=== PATIENT | female | born 1995 | race Caucasian/White ===

== ENCOUNTER → 2020-09-30 | Day surgery (SDC) | payer OTHER ==
[~2020-09-30] MED LIST: HYDROCODON-ACE1 EAC4 PO; IBU600 MG PO
[2020-09-30 07:00] LABS: HEMOGLOBIN 11.7 gm/dl (12.3-15.3); RED BLOOD COUNT 3.83 M/UL (4.00-5.10); WHITE BLOOD COUNT 9.4 K/UL (4.5-11.0)
== END | disposition home or self-care (01) ==
LOC: OR 06:14
PROVIDERS: Obstetrics & Gynecology
PROC: 10D07Z8 Extraction of Products of Conception, Other, Via Natural or Artificial Opening (ICD-10-PCS; principal; 2020-09-30 07:30)
DX: O02.0 Blighted ovum and nonhydatidiform mole (principal); N89.8 Other specified noninflammatory disorders of vagina; N88.3 Incompetence of cervix uteri; Z20.822 Contact with and (suspected) exposure to COVID-19
CPT/HCPCS: 36415; 81001; 85025; 87635; J1100; J1885; J2250; J2405; J2590; J2704; J2795; J3010; J7030; J7120